=== PATIENT | male | born 1965 | race Caucasian/White ===

== ENCOUNTER 2023-08-05 19:44 | Inpatient (IN) | payer OTHER ==
[2023-08-05] MEDS ORDERED: Morphine 4 MG/ML VIAL SLOW IVP PRN (23:01)
[2023-08-05] MEDS ORDERED: Acetaminophen 650 MG Suppository PR PRN (23:11)
[2023-08-05] MEDS ORDERED: Ondansetron ODT 4 MG TAB PO PRN (23:11)
[2023-08-05] MEDS ORDERED: Ondansetron PF 4 MG/2 ML Vial IVP PRN (23:11)
[2023-08-05] MEDS ORDERED: Glucagon 1 MG/ML KIT IM PRN (23:11)
[2023-08-05] MEDS ORDERED: Dextrose 50% Abboject 50 ML SYRINGE SLOW IVP PRN (23:11)
[2023-08-05] MEDS ORDERED: Dextrose 5% in Water 1,000 ML IV PRN (23:11)
[2023-08-05] MEDS ORDERED: HumaLOG 300 UNITS/3 ML VIAL SC PRN ×2 (23:11)
[2023-08-05] MEDS ORDERED: Ketorolac Tromethamine 30 MG/ML VIAL IVP SCH (23:15)
[2023-08-05] MEDS ORDERED: Pantoprazole 40 MG VIAL IVP SCH (23:15)
[2023-08-05] MEDS: Acetaminophen 325 MG TAB PO PRN (23:23)
[2023-08-05] MEDS: Lidocaine 4% Patch TD SCH (23:23)
[2023-08-05 23:48] VITALS: BMI 32.3
[2023-08-06 06:58] LABS: #Eosinphils 0.1 thou/uL (0.0-0.7); #Monocytes 0.5 thou/uL (0.11-0.59); #Neutrophils 2.4 thou/uL (1.40-6.50); %Basophils 0.6 % (0.0-1.0); %Eosinophils 1.7 % (0.0-10.0); %Lymphocytes 35.1 % (21.0-51.0); %Monocytes 10.7 % (0.0-10.0); %Neutrophils 51.7 % (42.0-75.0); Hematocrit 42.5 % (42.0-52.0); Hemoglobin 14.4 g/dL (14.0-18.0); Mean Corpuscular HGB CONC 33.9 g/dL (32.0-36.0); Mean Corpuscular Hemoglobin 34.7 pg (27.0-31.0); Mean Corpuscular Volume 102.4 fl (78.0-98.0); Mean Platelet Volume 11.9 fL (7.4-10.4); RBC Distribution Width 12.4 % (11.5-14.5); Red Blood Cell (RBC) Count 4.15 mill/uL (4.70-6.10); White Blood Cell (WBC) Count 4.7 10x3/uL (4.8-10.8)
[2023-08-06 06:59] LABS: Platelet Count 89 10x3/uL (130-400)
[2023-08-06 07:22] LABS: Anion Gap 14 mmol/L (10-20); BUN (Urea Nitrogen) 16 mg/dL (8.4-25.7); Calc. Creatinine Clearance 110 mL/min (70-130); Calcium 9.5 mg/dL (7.8-10.44); Carbon Dioxide 22 mmol/L (22-29); Chloride 105 mmol/L (98-107); Estimated GFR 76; Glucose 116 mg/dL (70-105); Potassium 3.7 mmol/L (3.5-5.1); Sodium 137 mmol/L (136-145)
[2023-08-06] MEDS: Fenofibrate Nanocrystallized 145 MG TAB PO SCH (08:27)
[2023-08-06] MEDS: Acetaminophen 325 MG TAB PO PRN (08:28)
[2023-08-06] MEDS: Pantoprazole 40 MG VIAL IVP SCH (08:28)
[2023-08-06] MEDS ORDERED: Gabapentin 300 MG CAP PO SCH (09:00)
[2023-08-06] MEDS ORDERED: Non-Formulary Item 1 EACH (Lisinopril [Lisinopril] 40 MG Tablet) PO SCH (09:00)
[2023-08-06] MEDS ORDERED: HYDROcodone/Acetaminophen 5/325 mg Tablet PO PRN (14:10)
[2023-08-06] MEDS ORDERED: HYDROcodone/Acetaminophen 5/325 mg Tablet PO SCH (14:15)
[2023-08-06] MEDS: Gabapentin 300 MG CAP PO SCH ×2 (15:33→20:47)
[2023-08-06] MEDS: Transdermal Patch Removal TOP SCH (15:34)
[2023-08-06] MEDS ORDERED: Rosuvastatin 20 MG TAB PO SCH (21:00)
[2023-08-06] MEDS: Lidocaine 4% Patch TD SCH (23:13)
[2023-08-07 06:32] LABS: #Eosinphils 0.1 thou/uL (0.0-0.7); #Monocytes 0.6 thou/uL (0.11-0.59); #Neutrophils 2.7 thou/uL (1.40-6.50); %Basophils 0.7 % (0.0-1.0); %Eosinophils 1.6 % (0.0-10.0); %Lymphocytes 25.2 % (21.0-51.0); %Monocytes 12.4 % (0.0-10.0); %Neutrophils 59.7 % (42.0-75.0); Hematocrit 44.6 % (42.0-52.0); Hemoglobin 15.6 g/dL (14.0-18.0); Mean Corpuscular Hemoglobin 35.1 pg (27.0-31.0); Mean Corpuscular Volume 100.2 fl (78.0-98.0); Mean Platelet Volume 11.6 fL (7.4-10.4); Platelet Count 94 10x3/uL (130-400); RBC Distribution Width 12.3 % (11.5-14.5); Red Blood Cell (RBC) Count 4.45 mill/uL (4.70-6.10); White Blood Cell (WBC) Count 4.5 10x3/uL (4.8-10.8)
[2023-08-07 06:53] LABS: Anion Gap 14 mmol/L (10-20); BUN (Urea Nitrogen) 12 mg/dL (8.4-25.7); Calc. Creatinine Clearance 116 mL/min (70-130); Calcium 9.9 mg/dL (7.8-10.44); Carbon Dioxide 22 mmol/L (22-29); Chloride 104 mmol/L (98-107); Estimated GFR 81; Glucose 167 mg/dL (70-105); Potassium 3.9 mmol/L (3.5-5.1); Sodium 136 mmol/L (136-145)
[2023-08-07] MEDS: Gabapentin 300 MG CAP PO SCH (09:13)
[2023-08-07] MEDS: Pantoprazole 40 MG VIAL IVP SCH (09:13)
[2023-08-07] MEDS: Fenofibrate Nanocrystallized 145 MG TAB PO SCH (09:15)
[2023-08-07] MEDS: Transdermal Patch Removal TOP SCH (12:09)
[2023-08-07 15:13] VITALS: BP 132/82; TEMP 98.9
== END 2023-08-07 15:28 | disposition home or self-care (01) | DRG 552 ==
LOC: SJJU 19:44 → OBSVTOIN 08-07 09:22
PROVIDERS: ADMIT Student in an Organized Health Care Education/Training Program; ATTEND Internal Medicine
DX: M51.36 Other intervertebral disc degeneration, lumbar region (principal); I10 Essential (primary) hypertension; E78.5 Hyperlipidemia, unspecified; E11.40 Type 2 diabetes mellitus with diabetic neuropathy, unspecified; F10.10 Alcohol abuse, uncomplicated; M51.37 Other intervertebral disc degeneration, lumbosacral region; Z98.890 Other specified postprocedural states; Z88.6 Allergy status to analgesic agent; Z79.899 Other long term (current) drug therapy; Z79.4 Long term (current) use of insulin; Z87.891 Personal history of nicotine dependence
CPT/HCPCS: 36415; 36416; 72148; 80048; 85025; 96374; 96375; 96376; C9113; G0378; J1885